=== PATIENT | female | born 1965 | race Caucasian/White ===

== ENCOUNTER → 2018-08-31 | Outpatient (CLI) | payer OTHER ==
[~2018-08-31] VITALS: Ht 170.2 cm; Wt 59.0 kg
[~2018-08-31] MED LIST: ADVIL LIQUI-GE200 MG PO; ALEVE220 MG PO; ALLEGRA180 MG PO; MEDROLDOSEPACK PO; PROBIOTIC1 EAC1 PO; SPRINTEC1 EACH PO; THERA-M CAPLET1 EACH PO; ZANAFLEX2 MG PO
[2018-08-31 08:25] VITALS: BP 140/84
--- NOTE | 2018-08-31 08:34 | NUR ---
Pain Clinic Assessment: 1. History of Osteoarthritis: Right Lower Extremity History of Rheumatoid Arthritis: Not Applicable 2. Height: 5 ft. 7 in. 170.2 cm. Weight: 130.0 lb. oz. 58.968 kg. Patient's BMI: 20.4 3. Vital Signs: BP: 140/84 Pulse: 57 Resp: 16 Temp: 02 Sat: 100 ECG Mon: 4. Pain Intensity: 5 5. Fall Risk: Dizziness: N Needs help standing or walking: N Fallen in the last 3 months: N Fall risk comments: 6. Patient on Blood Thinner: None 7. History of Hypertension: N 8. Opioid Therapy greater than 6 weeks: N Opiate Contract Signed: 9. Risk Assessment Tool Provided: low-0 10. Functional Assessment Tool: 11. Recreational Drug Use: Never Drug Type: Tobacco Use: Never Smoker Tobacco Type: Amount or Packs/day: How Many Years: Alcohol Use: Yes Frequency: Daily Quant: 1
--- NOTE | 2018-10-12 08:22 | HPC ---
[facility] [place] [place] [address] PAIN MANAGEMENT CONSULTATION Name: KAMAR DELCID Room #: REG LON ShrutiAnkush#: [id number] Admission: 08/31/18 ������������������ Attend Phys: Jb Nelson MD Discharge: ������������������ Date of : 63 Report #: [id number] THIS REPORT FOR: //name// CC: Meli Nelson DATE OF SERVICE: 08/31/2018 CHIEF COMPLAINT: Cervical neck pain. HISTORY OF PRESENT ILLNESS: The patient is a 52-year-old female who has been referred to the pain clinic for evaluation of neck pain. She noticed pain and discomfort, which has started in 08/2018. She describes it as a sharp and aching pain along the back of her neck involving her shoulders. She notes some discomfort in her shoulder blade, which has caused a "intense" headache. This discomfort is mostly manifested behind the center of her eyes. Notes that her pain sometimes odessa to the level that she felt like she might vomit. Notes that the pain is worse when she is standing or sitting for long periods without support of her head. Pain improves by lying down as well as using heat and massage. [place] like there were spasms in her neck. She has tried moving her computer to put it in a more ergonomic situation. She has noticed turning her head to the right was more annoying than turning to the left. She has tried nonsteroidal anti-inflammatory medication, Aleve. She notes that this helped somewhat. She describes it as continuous, steady, constant, burning, shooting, aching, sharp and pounding. Rates it as a 5/10 today, can average 7-8. ALLERGIES: No known drug allergies. ENVIRONMENTAL ALLERGIES FROM FEATHERS, DUST, MITES, PLANTS, AND TREES. CURRENT MEDICATIONS: Lactobacillus acidophilus, Naprosyn 220 mg q. 8 hours p.r.n., iron, calcium, and Salud 180 mg. PAST MEDICAL HISTORY: Joint disease, right ankle due to injury. PAST SURGICAL HISTORY: 1. On 08/27/1995, benign lump removed from left breast. 2. In 02/2013, microfracture surgery on her right knee. 3. In 06/2017, basal cell mass removed from left cheek. SOCIAL HISTORY: She is a marketing ambassador. She is working at this juncture. REVIEW OF SYSTEMS: Questionnaire, generally good health, headaches, eye disease/injury, wears glasses, numbness, tingling, and insomnia. LABORATORY DATA: No laboratory values are available [place] [address] PAIN MANAGEMENT CONSULTATION Name: KAMAR DELCID Room #: REG [facility]#: [id number] Admission: 08/31/18 ������������������ Attend Phys: Jb Nelson MD Discharge: ������������������ Date of : 63 Report #: [id number] PAIN CLINIC ASSESSMENT AND PQRS: 1. History of osteoarthritis. The patient has some arthritic changes in her right lower extremity. She is not being treated for rheumatoid arthritis. 2. Height 5 feet 7 inches, weight 130 pounds, BMI is 20.4. 3. VITAL SIGNS: Blood pressure 140/84, pulse 57, respiratory rate 16, room air saturation 100%. 4. Pain intensity 5/10. 5. Fall history: The patient has not fallen in the last 3 months. 6. Blood thinner. The patient is not on a blood thinning medication. 7. Hypertension. The patient is not being treated for hypertension. 8. Opioids greater than 6 weeks. The patient is not on an opioid regimen. 9. Functional assessment tool . 10. Recreational drug use. The patient denies use of recreational drugs. 11. Tobacco: The patient has never smoked. 12. Alcohol. The patient drinks 1 alcoholic beverage daily. PHYSICAL EXAMINATION: GENERAL: The patient is a well-developed, well-nourished white female. Appears her stated age. She is alert and oriented x 3. Her affect is appropriate. Speech is fluent. HEENT: Normocephalic, atraumatic. Extraocular eye muscles intact. Sclerae nonicteric. Mucous membranes are moist. NECK: Without adenopathy or JVD. The patient has pain in the posterior neck area. Pain in the area of the occipital area. Has pain in the trapezius on the right, has pain in the area of the rhomboids on the right with pain involving the right shoulder. The patient has had some sensation of tingling and numbness in the affected area. HEART: Regular rate. LUNGS: Clear to auscultation. ABDOMEN: Nontender. Bowel sounds present. EXTREMITIES: Upper extremity muscle strength is judged to be 5/5 for the major muscle groups in the upper extremity. Deep tendon reflexes are +1 bilaterally. Lower extremity muscle strength is judged to be 5/5 for the major muscle groups of lower extremity. The patient without significant scoliosis, kyphosis, or lordosis. Deep tendon reflexes +1 at the knees. Anterior and posterior spring tests are negative. Corbin sign negative. IMPRESSION: Myofascial pain with some pain and discomfort in the occipital area on the right and midline as well as trigger points in the right trapezius and rhomboid areas. RECOMMENDATIONS: We discussed treatment options with the patient. The risks and benefits of trigger point injections were discussed. The possibility of pneumothorax, nerve damage, infection, worsening of pain, no improvement in pain were discussed. The patient elects to proceed with trigger point injections to [facility] [address] [place] [address] PAIN MANAGEMENT CONSULTATION Name: KAMAR DELCID Room #: REG [facility]#: [id number] Admission: 08/31/18 ������������������ Attend Phys: Jb Nelson MD Discharge: ������������������ Date of : 63 Report #: [id number] the trigger point areas, which are most problematic. We will also have the patient get an AP lateral plane film secondary to the probability of cervical spondylosis. She is having some numbness and tingling in her shoulder. We discussed treatment with the patient and she elects to proceed with trigger point injections. PROCEDURE NOTE: The patient was placed in the sitting position. Her back was sterilely prepped with a chlorhexidine solution in the right shoulder area. Trigger point was noted in the trapezius on the right side. A trigger point was also noted in the area of rhomboids. Palpation in this area does reproduce a considerable amount of the patient's pain and discomfort. First trigger point #1 in the right trapezius area was identified. A 25-gauge needle was then advanced to this area. The patient states that this did reproduce her discomfort. Aspiration was negative for air. A total of 8 mL of 0.5% bupivacaine and 40 mg triamcinolone was injected. The second trigger point which was identified in the right rhomboid area was palpated. A 25-gauge needle was then advanced into this area. The patient states that this did reproduce her discomfort. Aspiration was negative for air. A total of 8 mL of 0.5% bupivacaine and 40 mg triamcinolone was injected. The patient tolerated the procedure well. There were no complications. She was then followed in the pain clinic for an appropriate amount of time. She would then follow up after AP and lateral plain film for examination of her cervical spine given that she is having some numbness and tingling sensation. We would like to thank you for letting us participate in her care. We hope she continues to improve. ��������������������������������������������� <ELECTRONICALLY SIGNED> ���������������������������������������� By: Jb Nelson MD ��������������������������������������������� 10/12/18 0822 [id number] Jb Nelson MD /nt
== END | disposition home or self-care (01) ==
LOC: PAIN 06:58
DX: M79.18 Myalgia, other site (principal); M54.2 Cervicalgia; M19.90 Unspecified osteoarthritis, unspecified site; Z98.890 Other specified postprocedural states